=== PATIENT | male | born 1945 | race Caucasian/White ===

== ENCOUNTER 2017-04-10 10:43 | Emergency (ER) | payer BC, OTHER ==
[2017-04-10 10:56] VITALS: BP 144/91; PULSE 68; TEMP 97.7; BMI 30.5
--- NOTE | 2017-04-10 11:11 | PDOC ---
History of Present Illness - General History Source: Patient Exam Limitations: No Limitations - History of Present Illness Initial Comments: 04/10/17 12:23 The patient is a 71 year old male with a significant PMH of hypertension and hyperlipidemia who presents to the emergency department with right shoulder pain since yesterday afternoon. The patient describes the shoulder pain as a 6/ 10 radiating along the right side of the upper body with no associated swelling. The patient states that he has been lifting boxes and moving things around for the holidays. Patient states that he is concerned due to his age prompting his visit to the ER. The patient denies chest pain, shortness of breath, headache, lightheadedness, and dizziness. Denies fever, chills, nausea, vomit, diarrhea and constipation. Allergies: NKA Past surgical history: None reported Social history: No reported drug, alcohol, or drug use. PCP: Dr. Greene <Moriah Jimenez - Last Filed: 04/10/17 14:48> <Matt Roca - Last Filed: 04/10/17 19:42> - General Chief Complaint: Pain, Acute Stated Complaint: PAIN ON RIGHT ARM Time Seen by Provider: 04/10/17 11:05 Past History <Moriah Jimenez - Last Filed: 04/10/17 14:48> - Past Medical History Anemia: No Cancer: No Cardiac Disorders: No CVA: No COPD: No CHF: No Dementia: No Diabetes: No GI Disorders: Yes (HX.COLON POLYPS) Disorders: Yes (BPH) HTN: Yes Hypercholesterolemia: Yes Liver Disease: No Seizures: No Thyroid Disease: No - Surgical History Abdominal Surgery: No Appendectomy: No Cardiac Surgery: No Cholecystectomy: No Lung Surgery: No Neurologic Surgery: No Orthopedic Surgery: No - Immunization History Immunization Up to Date: Yes - Suicide/Smoking/Psychosocial Hx Smoking History: Never smoked Have you smoked in the past 12 months: No Information on smoking cessation initiated: No Hx Alcohol Use: No Drug/Substance Use Hx: No Substance Use Type: None Hx Substance Use Treatment: No <Matt Roca - Last Filed: 04/10/17 19:42> - Past Medical History Allergies/Adverse Reactions: Allergies Allergy/AdvReac Type Severity Reaction Status Date / Time No Known Drug Allergies Allergy Verified 04/10/17 10:51 Home Medications: Ambulatory Orders Amlodipine 10/Benazepril 20 [Lotrel 03/05] 1 tab PO HS 10/05/11 Atorvastatin Ca [Lipitor] 10 mg PO HS 10/05/11 Tafluprost/Pf [Zioptan 0.0015% Eye Drops] 1 drop OU HS 01/24/13 Review of Systems - Review of Systems Able to Perform ROS?: Yes Comments:: 04/10/17 12:25 A complete review of 10 out of 10 review of systems is taken and is negative apart from what is previously mentioned below and in the HPI. <Moriah Jimenez - Last Filed: 04/10/17 14:48> *Physical Exam - Vital Signs Last Vital Signs Temp Pulse Resp BP Pulse Ox 97.7 F 68 17 144/91 97 04/10/17 10:51 04/10/17 10:51 04/10/17 10:51 04/10/17 10:51 04/10/17 10:51 - Physical Exam Comments: 04/10/17 12:25 Vitals: Triage Vital signs reviewed General Appearance: no acute distress, well nourished well developed, Head: Atraumatic, normocephalic Eyes: Pupils equal reactive round, extraocular movement intact Neck: Supple;No Nuchal rigidity Chest Wall: Nontender Cardiac: Regular rate and rhythm, no murmurs, no rubs, no gallops, Lungs: Clear to auscultation bilateral, good air movement bilaterally, Abdomen: Soft, nondistended, normal bowel sounds, nontender to palpation Extremities: Full range of motion to all extremities, no cyanosis, clubbing, or edema Skin: Warm and dry, no rashes or lesions, no petechiae Neuro: AOX3; Cranial Nerves 2-12 grossly intact, Strength intact to all extremities, Sensation intact to all extremities Psych: normal mood, normal affect <Moriah Jimenez - Last Filed: 04/10/17 14:48> - Vital Signs Last Vital Signs Temp Pulse Resp BP Pulse Ox 97.7 F 68 17 144/91 97 04/10/17 10:51 04/10/17 10:51 04/10/17 10:51 04/10/17 10:51 04/10/17 10:51 <Matt Roca - Last Filed: 04/10/17 19:42> Heart Score/ECG Review #1 04/10/17 12:31 EKG performed at [11:54] demonstrates rate of [64], rhythm of [Sinus rhythm with 1st degree AV block], axis equal to [normal]. no T wave inversions, no ST elevations <Moriah Jimenez - Last Filed: 04/10/17 14:48> ED Treatment Course - LABORATORY CBC & Chemistry Diagram: 04/10/17 11:49 04/10/17 11:49 - ADDITIONAL ORDERS Additional order review: 04/10/17 11:49 RBC 5.25 MCV 82.8 MCHC 33.1 RDW 13.6 MPV 7.5 Neutrophils % 59.0 Lymphocytes % 30.0 Monocytes % 7.7 Eosinophils % 2.2 Basophils % 1.1 <Moriah Jimenez - Last Filed: 04/10/17 14:48> - LABORATORY CBC & Chemistry Diagram: 04/10/17 11:49 04/10/17 11:49 <Matt Roca - Last Filed: 04/10/17 19:42> Medical Decision Making - Medical Decision Making 04/10/17 14:22 Exam: Chest XR Who interpreted: Dr. Padgett Reviewed by: Dr. Roca Impression: No acute chest pathology. No comparison studies. <Moriah Jimenez - Last Filed: 04/10/17 14:48> - Medical Decision Making 04/10/17 15:01 Heart score 3 chest pain-free right arm pain on presentation nonischemic EKG troponin negative 2 history and examination consistent with right arm discomfort Patient follow up with his doctor this week Findings, the need for follow-up and strict return instructions discussed with patient. <Matt Roca - Last Filed: 04/10/17 19:42> *DC/Admit/Observation/Transfer - Attestations Scribe Attestion: 04/10/17 12:27 Documentation prepared by Moriah Jimenez, acting as medical services manager for Matt Roca MD. <Moriah Jimenez - Last Filed: 04/10/17 14:48> <Matt Roca - Last Filed: 04/10/17 19:42> Diagnosis at time of Disposition: Arm pain Qualifiers: Laterality: right Qualified Code(s): M79.601 - Pain in right arm - Discharge Dispostion Disposition: HOME - Referrals Referrals: Redd Greene MD [Primary Care Provider] - - Patient Instructions Printed Discharge Instructions: DI for Arm Pain Additional Instructions: Follow-up with your doctor on Wednesday. Return to the emergency department for any chest pain shortness of breath severe worsening symptoms or for any concerns. - Post Discharge Activity
[2017-04-10 11:54] LABS: BASOPHIL 1.1 % (0-2.0); EOSINOPHIL 2.2 % (0-4.5); MCH 27.4 pg (25.7-33.7); MCHC 33.1 g/dl (32.0-35.9); MEAN CELL VOLUME 82.8 fl (80-96); MEAN PLT VOLUME 7.5 fl (7.5-11.1); PLATELET COUNT 216 K/MM3 (134-434); RDW 13.6 % (11.9-15.9); WHITE BLOOD COUNT 5.5 K/mm3 (4.0-10.0)
[2017-04-10 12:24] LABS: ANION GAP 5 (8-16); BILIRUBIN,TOTAL 0.5 mg/dL (0.2-1.0); CALCIUM 8.4 mg/dL (8.5-10.1); CO2 29 mmol/L (21-32); CREATININE 0.8 mg/dL (0.7-1.3); GLUCOSE,RANDOM 112 mg/dL (74-106); SGOT/AST 14 U/L (15-37); SGPT/ALT 26 U/L (12-78); TOT PROT 7.5 g/dl (6.4-8.2)
[2017-04-10 12:27] LABS: ALK PHOS 90 U/L (45-117); TROPONIN I < 0.02 ng/ml (0.00-0.05)
--- NOTE | 2017-04-12 14:44 | EKG ---
Test Reason : Blood Pressure : / mmHG Vent. Rate : 064 BPM Atrial Rate : 064 BPM P-R Int : 240 ms QRS Dur : 106 ms QT Int : 430 ms P-R-T Axes : 043 003 033 degrees QTc Int : 443 ms SINUS RHYTHM WITH 1ST DEGREE A-V BLOCK OTHERWISE NORMAL ECG NO PREVIOUS ECGS AVAILABLE Confirmed by CHAD SHUKLA, LAURA ([id number]) on 04/12/2017 2:44:17 PM Referred By: Confirmed By:LAURA BONILLA MD
== END 2017-04-10 15:54 | disposition home or self-care (01) ==
LOC: JER 10:43
DX: M79.601 Pain in right arm (principal); I10 Essential (primary) hypertension; E78.00 Pure hypercholesterolemia, unspecified; N40.0 Benign prostatic hyperplasia without lower urinary tract symptoms; Z86.010 Personal history of colon polyps
CPT/HCPCS: 36415; 71010-TC; 80053; 84484; 85025; 93005; 93010; 99281-25

== ENCOUNTER 2018-09-19 06:57 | Day surgery (SDC) | payer OTHER, BC ==
[2018-09-16 12:14] VITALS: BMI 31.3
[2018-09-19 08:26] VITALS: TEMP 97.8
[2018-09-19 09:05] VITALS: BP 128/76; PULSE 72
--- NOTE | 2018-09-20 13:23 | PATH ---
Surgical Pathology Report Patient Name: BROOKE MCGHEE [facility]. Rec. #: [id number] /Age/Gender: 1945 (Age: 72) / M Account: [id number] Location: [facility]-ENDOSCOPY Taken: 09/19/2018 Received: 09/19/2018 Reported: 09/20/2018 Physicians: Aruna Wayne M.D. Specimen(s) Received A: RIGHT COLON B: RECTAL POLYP Clinical History Polyp surveillance Postoperative diagnosis: Right colon polyp and rectal polyps, diverticulosis Final Diagnosis A. RIGHT COLON POLYP, BIOPSY: COLONIC MUCOSA WITH REACTIVE LYMPHOID FOLLICLES IN THE LAMINA PROPRIA. B. RECTAL POLYPS, BIOPSY: FRAGMENTS OF HYPERPLASTIC POLYP. SEPARATE FRAGMENTS OF COLONIC MUCOSA WITH FOCAL LYMPHOID AGGREGATE IN THE LAMINA PROPRIA. Electronically Signed Juan Alberto Siu M.D. Gross Description A. Received in formalin, labeled "biopsy right colon polyp" are 3 crawford, irregular portions of soft tissue ranging from 0.3-0.4 cm. in greatest dimension. The specimens are submitted in toto in one cassette. B. Received in formalin, labeled "polyps rectum" are 4 crawford, irregular portions of soft tissue ranging from 0.3-0.5 cm. in greatest dimension. The specimens are submitted in toto in one cassette. 09/19/201809/19/2018
== END 2018-09-19 09:56 | disposition home or self-care (01) ==
LOC: JASU-ENDO 06:57
PROVIDERS: ATTEND Internal Medicine Gastroenterology
PROC: 0DBK8ZX Excision of Ascending Colon, Via Natural or Artificial Opening Endoscopic, Diagnostic (ICD-10-PCS; 2018-09-19)
PROC: 0DBP8ZX Excision of Rectum, Via Natural or Artificial Opening Endoscopic, Diagnostic (ICD-10-PCS; principal; 2018-09-19 08:00)
DX: Z12.11 Encounter for screening for malignant neoplasm of colon (principal); Z86.010 Personal history of colon polyps; K62.1 Rectal polyp; D12.2 Benign neoplasm of ascending colon; K57.30 Diverticulosis of large intestine without perforation or abscess without bleeding
CPT/HCPCS: 88305-TC

== ENCOUNTER 2023-09-01 14:45 | Emergency (ER) | payer OTHER, BC ==
[2023-09-01 15:03] VITALS: BP 151/88; PULSE 70; RESP 17; TEMP 98.1; BMI 31.8
[2023-09-01] MEDS ORDERED: ACETAMINOPHEN 325 MG TABLET (FP) ONE (16:07)
[2023-09-01] MEDS: ACETAMINOPHEN 325 MG TABLET (FP) PO ONE (16:10)
== END 2023-09-01 16:35 | disposition home or self-care (01) ==
LOC: FER 14:45
DX: M79.604 Pain in right leg (principal); R60.0 Localized edema
CPT/HCPCS: 93971-TC; 99284-25

== ENCOUNTER 2024-04-26 04:38 | Day surgery (SDC) | payer OTHER, BC ==
[2024-04-21 13:01] VITALS: BMI 32.1
[2024-04-26 10:53] VITALS: TEMP 97.8
[2024-04-26 11:12] VITALS: BP 125/66; PULSE 67; RESP 20
== END 2024-04-26 11:30 | disposition home or self-care (01) ==
LOC: JASU-ENDO 04:38
PROVIDERS: ATTEND Internal Medicine Gastroenterology
PROC: 0DBL8ZX Excision of Transverse Colon, Via Natural or Artificial Opening Endoscopic, Diagnostic (ICD-10-PCS; 2024-04-26)
PROC: 0DBN8ZX Excision of Sigmoid Colon, Via Natural or Artificial Opening Endoscopic, Diagnostic (ICD-10-PCS; 2024-04-26)
PROC: 0DBP8ZX Excision of Rectum, Via Natural or Artificial Opening Endoscopic, Diagnostic (ICD-10-PCS; 2024-04-26)
PROC: 0DBK8ZX Excision of Ascending Colon, Via Natural or Artificial Opening Endoscopic, Diagnostic (ICD-10-PCS; principal; 2024-04-26 10:00)
DX: Z12.11 Encounter for screening for malignant neoplasm of colon (principal); D12.8 Benign neoplasm of rectum; D12.5 Benign neoplasm of sigmoid colon; D12.2 Benign neoplasm of ascending colon; D12.3 Benign neoplasm of transverse colon; K57.30 Diverticulosis of large intestine without perforation or abscess without bleeding; Z86.0100 Personal history of colon polyps, unspecified
CPT/HCPCS: 88305-TC